=== PATIENT | male | born 1990 | race Caucasian/White ===

== ENCOUNTER → 2024-12-05 | Outpatient (CLI) | payer OTHER ==
--- NOTE | 2024-12-05 15:41 | XR ---
EXAMINATION TYPE: XR sinus, 4 views DATE OF EXAM: 12/05/2024 2:06 PM COMPARISON: None CLINICAL INDICATION: Male, 34 years old with history of R09.89; PHH, pressure across the nose and und er the eyes. Vocal changes intermittently for about one year. FINDINGS: Slight rightward nasal septal deviation. The frontal, maxillary, ethmoid, and sphenoid sinuses appear well pneumatized. No air fluid level on the water's view. Orbits appear symmetric. No depressed or i nflated nasal bone fracture seen. Maxillary spine appears intact. IMPRESSION: Slight rightward nasal septal deviation. No radiographically appreciable paranasal sinus disease. If persistent concern, consider CT of the paranasal sinuses. [facility], , 12/05/2024 3:39 PM
== END | disposition home or self-care (01) ==
LOC: RADXRMAIN 13:39
PROVIDERS: ATTEND Family Medicine
DX: J34.2 Deviated nasal septum (principal); R09.89 Other specified symptoms and signs involving the circulatory and respiratory systems
CPT/HCPCS: 70220